=== PATIENT | female | born 1950 | race African-American/Black ===

== ENCOUNTER 2018-05-26 14:52 | Emergency (ER) | payer OTHER ==
[~2018-05-26] VITALS: Ht 152.4 cm; Wt 60.3 kg
[~2018-05-26 14:52] MED LIST: AUGMENTIN 875-1 EACH PO; CLOPIDOGREL75 M1 PO; ESTRADIOL0.5 M1 PO; GLYBURIDE1.25 M1 PO; HYDROCHLOROTH12.5 M3 PO; IMODIUM2 MG PO; IRBESARTAN300 M1 PO; LEVSIN/SL0.125 MG SL; LORAZEPAM1 M1 PO; METFORMIN HCL500 M4 PO; NAPROXEN500 M2 PO; OMEPRAZOLE40 M1 PO; ZOFRAN4 M1 SL
[2018-05-26 15:16] LABS: ABSOLUTE BASOPHIL COUNT 0 /CUMM (0.0-0.2); ABSOLUTE EOSINOPHIL COUNT 0.2 /CUMM (0.0-0.7); ABSOLUTE GRANULOCYTE CT 6.4 /CUMM (1.4-6.5); ABSOLUTE LYMPH COUNT 2.9 /CUMM (1.2-3.4); ABSOLUTE MONOCYTE COUNT 0.7 /CUMM (0.10-0.60); BASOPHIL % 0.4 % (0.0-2.0); EOSINOPHIL % 1.6 % (0-5); GRANULOCYTE % 62.8 % (42.2-75.2); HEMATOCRIT 34.8 % (37-47); MEAN CORPUSCULAR HGB 26.1 PG (27.0-31.0); MEAN CORPUSCULAR HGB CONC 32.7 G/DL (33.0-37.0); MEAN CORPUSCULAR VOLUME 79.7 FL (81.0-99.0); MEAN PLATELET VOLUME 8.2 FL (7.4-10.4); PLATELET COUNT 440 /CUMM (130-400); RBC DISTRIBUTION WIDTH 15.8 % (11.5-14.5); RED BLOOD CELL CT 4.36 /CUMM (4.20-5.40); WHITE BLOOD CELL COUNT 10.2 /CUMM (4.8-10.8)
--- NOTE | 2018-05-26 15:49 | ED GI/GU/ABDOMINAL COMPLAINT ---
History of Present Illness General Chief Complaint: Nausea, Vomiting, Diarrhea Stated Complaint: N/V/D Source: patient Exam Limitations: no limitations Vital Signs & Intake/Output Vital Signs & Intake/Output Vital Signs Date Time Temp Pulse Resp B/P B/P Pulse O2 O2 Flow FiO2 Mean Ox Delivery Rate 05/26 2027 97.6 94 18 135/65 98 Room Air 05/26 1758 97.9 95 18 138/65 05/26 1543 Room Air 05/26 1456 97.2 96 18 139/75 98 Room Air Allergies Coded Allergies: codeine (Intermediate, ITCHING 05/26/18) Reconcile Medications Amoxicillin/Potassium Clav (Augmentin 875-125 Tablet) 875 MG-125 MG TABLET 1 TAB PO BID possible cellulitis Clopidogrel Bisulfate (Clopidogrel) 75 MG TABLET 75 MG PO DAILY BLOOD THINNER (Reported) Estradiol 0.5 MG TABLET 0.5 MG PO DAILY ESTROGEN (Reported) Glyburide 1.25 MG TABLET 1.25 MG PO DAILY DIABETES (Reported) Hydrochlorothiazide 12.5 MG CAPSULE 12.5 MG PO DAILY BLOOD PRESSURE MED ( Reported) Hyoscyamine Sulfate (Levsin-Sl) 0.125 MG TAB 1-2 TAB SL Q4P PRN abd pain Irbesartan 300 MG TABLET 300 MG PO DAILY HTN (Reported) Lorazepam 1 MG TABLET 1 MG PO DAILY ANXIETY (Reported) Metformin HCl (Metformin HCl ER) 500 MG TAB.ER.24H 500 MG PO BID DIABETES ( Reported) Naproxen 500 MG TABLET 1 TAB PO BID PRN pain/inflammation Omeprazole 40 MG CAPSULE.DR 40 MG PO DAILY ACID REFLEX (Reported) Ondansetron (Zofran Odt) 4 MG TAB.RAPDIS 1 TAB SL TID PRN NAUSEA Triage Note: 67 YO FEMALE TO TRIAGE FOR EVAL OF +VOMITING AFTER EATING LUNCH AT WORK TODAY. STATES SHE DIDNT EAT ANYTHING OUT OF THE ORDINARY. C/O PAIN TO LOWER ABD. Triage Nurses Notes Reviewed? yes LMP (ages 10-50): post menopausal ? N Is pt currently ? No Onset: Abrupt Duration: day(s): (1), better, changing over time, continues in ED Timing: multiple episodes today Quality/Severity: cramping Severity Numbers: 5 Location: lower abdomen Radiation: no radiation Activities at Onset: none Prior Abdominal Problems: none Past Sexual History: Unobtainable at this time HPI: 67 Y/O female past medical history of hypertension, diabetes, anxiety present evaluation of episodes of nausea vomiting diarrhea and lower abdominal pain. Patient reports symptoms started around lunchtime today after she ate her lunch. She states she ate nothing out of the ordinary. She reports she vomited 3 times and 3 episodes of watery diarrhea. She reports some lower abdominal cramping rates as a 5 out of 10 present on both sides of the belly. She states she is feeling somewhat better since it first started but states that she did have an episode of dizziness and presyncope well vomiting. No chest pain or shortness of breath no slurred speech changes in vision bright red blood per rectum recent antibiotics melena sick contacts or recent travel. (Shola Elliott) Past History Travel History Traveled to [place] past 21 day No Medical History Any Pertinent Medical History? see below for history Neurological: TIA EENT: NONE Cardiovascular: hypertension Respiratory: NONE Gastrointestinal: GERD, irritable bowel syndrome Hepatic: NONE Renal: NONE Musculoskeletal: "MYOSTITIS" COSTOCHONDRITIS Psychiatric: anxiety Endocrine: diabetes Blood Disorders: NONE Cancer(s): NONE Surgical History Surgical History: non-contributory Psychosocial History What is your primary language Niuean Tobacco Use: Never used Family History Hx Contributory? No (Shola Elliott) Review of Systems Review of Systems Constitutional: Reports: no symptoms. EENTM: Reports: no symptoms. Respiratory: Reports: no symptoms. Cardiovascular: Reports: no symptoms. GI: Reports: see HPI, abdominal pain, diarrhea, nausea, vomiting. Genitourinary: Reports: no symptoms. Musculoskeletal: Reports: no symptoms. Skin: Reports: no symptoms. Neurological/Psychological: Reports: no symptoms. Hematologic/Endocrine: Reports: no symptoms. Immunologic/Allergic: Reports: no symptoms. All Other Systems: Reviewed and Negative (Shola Elliott) Physical Exam Physical Exam General Appearance: well developed/nourished, no apparent distress, alert, awake Head: atraumatic, normal appearance Eyes: Bilateral: normal appearance, EOMI. Ears, Nose, Throat, Mouth: hearing grossly normal, moist mucous membrane Neck: normal inspection, supple, full range of motion Respiratory: normal breath sounds, chest non-tender, no respiratory distress, lungs clear Cardiovascular: regular rate/rhythm, normal peripheral pulses Peripheral Pulses: 2+ radial (R), 2+ radial (L) Gastrointestinal: normal bowel sounds, soft, no organomegaly, tenderness (LOWER ABDOMEN) Back: normal inspection, normal range of motion, no vertebral tenderness Extremities: normal range of motion Neurologic/Psych: no motor/sensory deficits, awake, alert, oriented x 3, normal gait, normal mood/affect Skin: intact, normal color, warm/dry Core Measures ACS in differential dx? No Sepsis Present: No Sepsis Focused Exam Completed? No (Meet AVELAR,Shola) Progress Differential Diagnosis: appendicitis, biliary colic, bowel obstruction, cholecystitis, diverticulitis, gastritis, ischemic bowel, inflamm bowel dis, kidney stone, pancreatitis, peptic ulcer, PUD/GERD, SBO, UTI/pyelo Plan of Care: Orders Procedure Date/time Status TROPONIN LEVEL 05/26 181 Complete EKG 05/26 181 Active LACTIC ACID 05/26 1756 Complete Add-on Test (ER Only) 05/26 1519 Active EKG 05/26 1519 Active TROPONIN LEVEL 05/26 1508 Complete MAGNESIUM 05/26 1508 Complete URINALYSIS 05/26 1456 Complete LIPASE 05/26 1456 Complete LACTIC ACID 05/26 1456 Complete COMPREHENSIVE METABOLIC PANEL 05/26 1456 Complete CBC WITHOUT DIFFERENTIAL 05/26 1456 Complete Laboratory Tests 05/26/18 1854: Lactic Acid 2.1 05/26/18 1814: Troponin I < 0.01 05/26/18 1738: Urine Color YEL, Urine Clarity CLEAR, Urine pH 6.5, Ur Specific [place] <= 1.005 , Urine Protein NEG, Urine Ketones NEG, Urine Nitrite NEG, Urine Bilirubin NEG, Urine Urobilinogen 0.2, Ur Leukocyte Esterase TRACE H, Ur Microscopic SEDIMENT EXAMINED, Urine RBC RARE, Urine WBC 1-3 H, Ur Epithelial Cells OCCAS, Urine Hemoglobin NEG, Urine Glucose NEG 05/26/18 1508: Anion Gap 8, Estimated GFR > 60, BUN/Creatinine Ratio 22.0, Glucose 189 H, Lactic Acid 4.0 H, Calcium 9.3, Magnesium 1.5 L, Total Bilirubin 0.2, AST 23, ALT 36, Alkaline Phosphatase 65, Troponin I < 0.01, Total Protein 6.6, Albumin 3.6, Globulin 3.0, Albumin/Globulin Ratio 1.2, Lipase 20 L, CBC w Diff NO MAN DIFF REQ, RBC 4.36, MCV 79.7 L, MCH 26.1 L, MCHC 32.7 L, RDW 15.8 H, MPV 8.2 , Gran % 62.8, Lymphocytes % 28.4, Monocytes % 6.8, Eosinophils % 1.6, Basophils % 0.4, Absolute Granulocytes 6.4, Absolute Lymphocytes 2.9, Absolute Monocytes 0.7 H, Absolute Eosinophils 0.2, Absolute Basophils 0 Patient is evaluation of acute onset, pain nausea vomiting diarrhea started several hours prior to arrival. She reports she had 3 episodes of vomiting through because of diarrhea. She feels somewhat better since it first started. She does have some lower abdominal pain. Patient also had a presyncopal episode while vomiting. No chest pain. Labs EKG CT scan ordered. Blood work is remarkable for a lactic acid of 4. Negative white blood cell count. CT scan is negative. EKG is negative troponin negative. Additional IV fluids and Zofran was ordered. Patient is feeling better. She will get a repeat EKG and troponin and repeat lactic acid that this is negative she can likely be discharged. On reevaluation patient is feeling better she is able tolerate fluids. Repeat lactic acid is 2.1. Troponin and EKG are negative and unchanged. Patient was able to ambulate with a steady gait in the ER. There's been no vomiting or diarrhea here. Advised to continue Zofran as needed. Drink plenty of fluids and bland foods follow-up with primary care doctor discussed return precautions case discussed Dr. Chung agrees Diagnostic Imaging: Viewed by Me: CT Scan. Discussed w/RAD: CT Scan. Radiology Impression: PATIENT: HECTOR GARRETT PRESENT AGE: 67 PATIENT ACCOUNT NO: [id number] : 51 LOCATION: [facility] ORDERING PHYSICIAN: Shola AVELAR SERVICE DATE: 05/26/18 EXAM TYPE: CAT - CT ABD & PELVIS W IV CONTRAST EXAMINATION: CT ABDOMEN AND PELVIS WITH CONTRAST CLINICAL INFORMATION: Lower abdominal pain with nausea vomiting and diarrhea for one day. COMPARISON: CT abdomen pelvis 08/08/2015 (report only) TECHNIQUE: Multidetector volumetric imaging was performed of the abdomen and pelvis following IV administration of 95 mL of Optiray 320 intravenous contrast. Sagittal and coronal reformatted images were obtained on the technologist's workstation. DLP: 263 mGy-cm FINDINGS: Visualized lung bases are well aerated. Minimal dependent atelectasis. The liver demonstrates normal size, contour and attenuation. No intrahepatic biliary ductal dilatation. The gallbladder has been surgically removed. The pancreas, spleen and adrenal glands are unremarkable. Small splenules are present. The kidneys are normal in size and demonstrate symmetric nephrograms. There is no hydronephrosis. Normal caliber loops of small and large bowel. Mild colonic diverticulosis without CT evidence to suggest active diverticulitis. Normal-appearing appendix. The abdominal aorta is normal in caliber but demonstrates mild atherosclerotic disease. The bladder is well- distended and normal in appearance. No pelvic lymphadenopathy. Mild diffuse degenerative changes of the spine. IMPRESSION: Mild colonic diverticulosis without CT evidence to suggest active diverticulitis. Normal appendix. DICTATED BY: Gael Cerda MD DATE/TIME DICTATED:05/26/181643 CASINO ATTENDANT: ALAN DATE/TIME TRANSCRIBED:05/26/181643 CONFIDENTIAL, DO NOT COPY WITHOUT APPROPRIATE AUTHORIZATION. <Electronically signed in Other Vendor System> SIGNED BY: Gael Cerda MD 05/26/181657 Initial ED EKG: normal sinus rhythm, LOW VOLTAGE IN CHEST LEADS (Shola Elliott) Departure Departure Disposition: HOME OR SELF CARE Condition: Stable Clinical Impression Primary Impression: Nausea vomiting and diarrhea Referrals: Christal SHANNON,Truman Benedict (PCP/Family) Additional Instructions: Rest and drink plenty of fluids. Zofran as needed for nausea. Eat bland foods like bananas rice applesauce and toast. Drink plenty of water. Make a follow- up with your doctor to review all results of today's visit monitor symptoms return with any concerns Departure Forms: Customer Survey General Discharge Information Prescriptions: Current Visit Scripts Ondansetron (Zofran Odt) 1 TAB SL TID PRN NAUSEA #15 TAB (Shola Elliott) PA/TRAVEL RN Co-Sign Statement Statement: ED Attending supervision documentation- [] I saw and evaluated the patient. I have also reviewed all the pertinent lab results and diagnostic results. I agree with the findings and the plan of care as documented in the PA's/TRAVEL RN's documentation. [X] I have reviewed the ED Record and agree with the PA's/TRAVEL RN's documentation. [] Additions or exceptions (if any) to the PAs/TRAVEL RN's note and plan are summarized below: [] (Sheldon SHANNON,Haroldo More)
--- NOTE | 2018-05-26 16:58 | CT SCAN REPORT ---
EXAMINATION: CT ABDOMEN AND PELVIS WITH CONTRAST CLINICAL INFORMATION: Lower abdominal pain with nausea vomiting and diarrhea for one day. COMPARISON: CT abdomen pelvis 08/08/2015 (report only) TECHNIQUE: Multidetector volumetric imaging was performed of the abdomen and pelvis following IV administration of 95 mL of Optiray 320 intravenous contrast. Sagittal and coronal reformatted images were obtained on the technologist's workstation. DLP: 263 mGy-cm FINDINGS: Visualized lung bases are well aerated. Minimal dependent atelectasis. The liver demonstrates normal size, contour and attenuation. No intrahepatic biliary ductal dilatation. The gallbladder has been surgically removed. The pancreas, spleen and adrenal glands are unremarkable. Small splenules are present. The kidneys are normal in size and demonstrate symmetric nephrograms. There is no hydronephrosis. Normal caliber loops of small and large bowel. Mild colonic diverticulosis without CT evidence to suggest active diverticulitis. Normal-appearing appendix. The abdominal aorta is normal in caliber but demonstrates mild atherosclerotic disease. The bladder is well-distended and normal in appearance. No pelvic lymphadenopathy. Mild diffuse degenerative changes of the spine. IMPRESSION: Mild colonic diverticulosis without CT evidence to suggest active diverticulitis. Normal appendix.
[2018-05-26] MEDS ORDERED: ZOFRAN ODT4 M1 SL (19:48)
[2018-05-26 20:27] VITALS: BP 135/65
== END 2018-05-26 20:28 ==
LOC: ERH 14:52
PROVIDERS: Physician Assistant
DX: R11.2 Nausea with vomiting, unspecified (principal); R19.7 Diarrhea, unspecified; I10 Essential (primary) hypertension; K21.9 Gastro-esophageal reflux disease without esophagitis; K58.9 Irritable bowel syndrome, unspecified; F41.9 Anxiety disorder, unspecified; E11.9 Type 2 diabetes mellitus without complications
CPT/HCPCS: 74177; 81001; 93005; 93010; 96374; J2405